=== PATIENT | male | born 1955 | race African-American/Black ===

== ENCOUNTER 2017-02-02 22:42 | Inpatient (IN) | payer BC, OTHER ==
[~2017-02-02] VITALS: Ht 182.9 cm; Wt 86.3 kg
[~2017-02-02 22:42] MED LIST: ANUSOL HC,ANUCO25 MG PR; ASPIR-LOW81 MG PO; BACLOFEN10 MG PO; BACLOFEN20 MG PO; DOCUSATE SODIU100 MG PO; ELIQUIS5 MG PO; ENTEREG12 MG PO; ERYTHROMYCIN250 M1 PO; ESCITALOPRAM OX10 MG PO; FAMOTIDINE40 MG PO; HYDROCODON-ACE1 EAC7 PO; IBUPROFEN600 MG PO; LEXAPRO10 MG PO; LIORESAL10 MG PO; LISINOPRIL10 MG PO; LISINOPRIL20 MG PO; LORAZEPAM0.5 MG PO; NEOMYCIN SULFA500 MG PO; NIFEREX-150,FE150 MG PO; NORCO 5/3251 TABLET PO; PEPCID20 MG PO; PRAVACHOL40 MG PO; PRAVASTATIN SOD20 MG PO; PRAVASTATIN SOD40 MG PO; PREDNISONE20 MG PO; SENNA-DOCUSATE1 EAC1 PO; TRAMADOL HCL50 MG PO; VERAPAMIL HCL180 MG PO; VERAPAMIL HCL360 MG PO; ZESTRIL10 MG PO
[2017-02-02 23:29] LABS: HEMATOCRIT 42.5 % (38.0-50.0); MCH 27.7 PG (29.0-34.0); MCHC 32.2 G/DL (30.0-36.0); MEAN PLAT.VOLUME 9.7 uM^3 (9.0-12.4); PLATELET COUNT 198 K/uL (156-360); RBC DIS.WIDTH-CV 13.9 % (11.8-14.6); RBC DIS.WIDTH-SD 43.5 % (39-53); RED BLOOD COUNT 4.94 M/uL (4.00-5.50); WHITE BLOOD COUNT 4.5 K/uL (4.1-10.2)
[2017-02-02 23:50] LABS: TROP-I INTERPRETATION NEGATIVE; TROPONIN-I < 0.01 ng/mL (0.0-0.30)
[2017-02-03 00:04] LABS: CHLORIDE 107 mEq/L (99-109); POTASSIUM 3.6 mEq/L (3.7-5.4); SODIUM 141 mEq/L (136-147)
[2017-02-03 00:06] LABS: GLUCOSE 108 mg/dL (70-99)
[2017-02-03 00:07] LABS: ANION GAP 14 MEQ/L (2-14)
[2017-02-03 00:08] LABS: TOTAL BILIRUBIN 0.5 mg/dL (0.0-1.0)
[2017-02-03 00:10] LABS: ALKALINE PHOSPHATASE 83 IU/L (3-129); GFR ESTIMATE (CALCULATED) 57 mL/min/
[2017-02-03 00:11] LABS: UREA NITROGEN (BUN) 20 mg/dL (9-23)
[2017-02-03 00:13] LABS: LIPASE 3 U/L (1.0-51.0)
[2017-02-03 02:11] LABS: CHLORIDE 111 mEq/L (99-109); SODIUM 140 mEq/L (136-147)
[2017-02-03 02:13] LABS: GLUCOSE 99 mg/dL (70-99)
[2017-02-03 02:14] LABS: ANION GAP 13 MEQ/L (2-14)
[2017-02-03 02:17] LABS: GFR ESTIMATE (CALCULATED) > 59 mL/min/
[2017-02-03 02:18] LABS: UREA NITROGEN (BUN) 19 mg/dL (9-23)
[2017-02-03 04:57] VITALS: BP 133/64
[2017-02-03 05:59] LABS: BASE EXCESS -0.5 mEq/L (-3 to +3); BICARBONATE 24.2 mEq/L (22-26); CARBOXY HGB 1.4 % (0-5); METHEMOGLOBIN 0.9 % (0-1.5); PCO2 39 mm Hg (35-45); PO2 75 mm Hg (80-100)
[2017-02-03 06:00] LABS: COMMENTS - BLOOD GASES A+C+; DEVICE ROOM AIR; FI02 0.21 %; SITE RR; TOTAL RESP RATE 16 resp/min
[2017-02-03 06:58] LABS: HEMATOCRIT 36.8 % (38.0-50.0); MCHC 32.3 G/DL (30.0-36.0); MCV 86.6 FL (86-99); MEAN PLAT.VOLUME 9.6 uM^3 (9.0-12.4); PLATELET COUNT 174 K/uL (156-360); RBC DIS.WIDTH-CV 14.5 % (11.8-14.6); RBC DIS.WIDTH-SD 45.8 % (39-53); RED BLOOD COUNT 4.25 M/uL (4.00-5.50)
[2017-02-03 07:08] LABS: ALKALINE PHOSPHATASE 53 IU/L (3-129); ANION GAP 10 MEQ/L (2-14); CHLORIDE 108 MEQ/L (99-109); GFR ESTIMATE (CALCULATED) > 59 mL/min/; GLUCOSE 98 mg/dL (70-99); MAGNESIUM 1.3 mg/dl (1.3-2.7); POTASSIUM 3.5 MEQ/L (3.7-5.4); SAMPLE HEMOLYSIS CHECK 0; SAMPLE ICTERIC CHECK 0; SAMPLE LIPEMIA CHECK 0; SODIUM 141 MEQ/L (136-147); TOTAL BILIRUBIN 0.4 MG/DL (0.0-1.0); UREA NITROGEN (BUN) 17 mg/dL (9-23)
[2017-02-03 07:12] LABS: WHITE BLOOD COUNT 10.6 K/uL (4.1-10.2)
[2017-02-03 07:34] VITALS: BP 129/83
[2017-02-03 07:40] LABS: EOSINOPHIL (%) 0 % (0-5); HEMATOLOGY COMMENT 1 SMEAR COMPATIBLE; IMMATURE GRANULOCYTE (%) 0.9 % (0.0-0.7); IMMATURE GRANULOCYTE COUNT 0.1 K/uL; INSTRUMENT ABS NEUTROPHIL CT 8.9 K/uL; LYMPHOCYTE COUNT 0.7 K/uL (1.0-2.8); MONOCYTE (%) 7.7 % (3-12); MONOCYTE COUNT 0.8 K/uL (0-0.8); NEUTROPHIL (%) 84.6 % (45-76); NEUTROPHIL COUNT 8.9 K/uL (1.8-6.4); PLAT.SUFFICIENCY ADEQUATE
[2017-02-03 11:04] VITALS: BP 134/72
[2017-02-03] MEDS ORDERED: BACLOFEN20 MG PO (13:08)
[2017-02-03] MEDS ORDERED: LEXAPRO20 MG PO (13:08)
[2017-02-03] MEDS ORDERED: NORCO 5/3251 TABLET PO (13:09)
[2017-02-03] MEDS ORDERED: PRINIVIL10 MG PO (13:09)
[2017-02-03] MEDS ORDERED: PRAVACHOL40 MG PO (13:10)
[2017-02-03] MEDS ORDERED: VERAPAMIL HCL180 MG PO (13:13)
[2017-02-03] MEDS ORDERED: LOW DOSE ASPIRI81 M1 PO (13:14)
[2017-02-03 15:50] VITALS: BP 120/71
[2017-02-03 22:00] VITALS: BP 122/62
[2017-02-03 22:29] LABS: CHLORIDE 107 mEq/L (99-109); POTASSIUM 3.7 mEq/L (3.7-5.4); SODIUM 139 mEq/L (136-147)
[2017-02-03 22:30] LABS: GLUCOSE 80 mg/dL (70-99)
[2017-02-03 22:32] LABS: ANION GAP 16 MEQ/L (2-14)
[2017-02-03 22:34] LABS: GFR ESTIMATE (CALCULATED) > 59 mL/min/
[2017-02-03 22:35] LABS: UREA NITROGEN (BUN) 17 mg/dL (9-23)
[2017-02-03 23:55] VITALS: BP 166/79
[2017-02-04 01:07] LABS: HEMATOCRIT 36.3 % (38.0-50.0); MCHC 32.5 G/DL (30.0-36.0); RBC DIS.WIDTH-CV 14.8 % (11.8-14.6); RBC DIS.WIDTH-SD 47.1 % (39-53); RED BLOOD COUNT 4.22 M/uL (4.00-5.50); WHITE BLOOD COUNT 2.8 K/uL (4.1-10.2)
[2017-02-04 02:06] LABS: ABS NEUTROPHIL COUNT 1.9; ANISOCYTOSIS 2+; ATYPICAL LYMPHOCYTE 4.3 %; BAND NEUTROPHILS 23.9 % (0-8.0); EOSINOPHIL ABS CT 0; HELMET CELLS 1+; HEMATOLOGY COMMENT 1 SN; INSTRUMENT ABS NEUTROPHIL CT 2.1 K/uL; LYMPHOCYTES 16.3 % (15.0-45.0); MEAN PLAT.VOLUME 9.7 uM^3 (9.0-12.4); METAMYELOCYTES 7.6 %; MICROCYTOSIS 1+; MYELOCYTES 2.2 %; PLAT.SUFFICIENCY ADEQUATE; PLATELET COUNT UNABLE TO REPORT K/uL (156-360); POIKILOCYTOSIS 1+; POLYCHROMASIA 1+; SEG.NEUTROPHILS 44.6 % (46.0-76.0); TOX.VACUOLIZATION 1+; TOXIC GRANULATION 1+
[2017-02-04 04:00] VITALS: BP 123/67
[2017-02-04 07:59] LABS: ALKALINE PHOSPHATASE 61 IU/L (3-129); ANION GAP 6 MEQ/L (2-14); CHLORIDE 110 MEQ/L (99-109); GFR ESTIMATE (CALCULATED) > 59 mL/min/; GLUCOSE 88 mg/dL (70-99); POTASSIUM 3.9 MEQ/L (3.7-5.4); SAMPLE HEMOLYSIS CHECK 0; SAMPLE ICTERIC CHECK 0; SAMPLE LIPEMIA CHECK 0; SODIUM 140 MEQ/L (136-147); TOTAL BILIRUBIN 0.6 MG/DL (0.0-1.0); UREA NITROGEN (BUN) 18 mg/dL (9-23)
[2017-02-04 08:09] LABS: HEMATOCRIT 34.2 % (38.0-50.0); MCH 27.9 PG (29.0-34.0); MCHC 31.9 G/DL (30.0-36.0); MCV 87.7 FL (86-99); MEAN PLAT.VOLUME 9.9 uM^3 (9.0-12.4)
[2017-02-04 08:17] LABS: PLATELET COUNT 115 K/uL (156-360); WHITE BLOOD COUNT 11.4 K/uL (4.1-10.2)
[2017-02-04 08:30] VITALS: BP 155/80
[2017-02-04 12:10] VITALS: BP 175/84
[2017-02-04 13:48] LABS: ADD MIUA? YES; BILIRUBIN NEGATIVE; BLOOD MODERATE; COLOR YELLOW ((YELLOW)); GLUCOSE (STRIP) NEGATIVE; KETONES NEGATIVE; LEUKOCYTES TRACE; NITRITE NEGATIVE; PROTEIN (STRIP) NEGATIVE; SPECIFIC GRAVITY 1.018 (1.000-1.030); UROBILINOGEN 0.2 MG/DL (0.2-1.0)
[2017-02-04 14:20] LABS: BACTERIA NONE SEEN /HPF; EPITHELIAL CELLS RARE /HPF; MUCUS TRACE /LPF; RED BLOOD CELLS TNTC /HPF (0-5); UCUL ADDED? NO
[2017-02-04 15:00] VITALS: BP 131/67
[2017-02-04 17:54] LABS: INTERNAL CONTROL VALID? YES
[2017-02-04 20:00] VITALS: BP 162/85
[2017-02-04 23:55] VITALS: BP 132/76
[2017-02-05 04:00] VITALS: BP 152/76
[2017-02-05 07:08] LABS: MCH 27.4 PG (29.0-34.0); MCHC 31.6 G/DL (30.0-36.0); MCV 86.8 FL (86-99); PLATELET COUNT 123 K/uL (156-360); RBC DIS.WIDTH-CV 14.7 % (11.8-14.6); RBC DIS.WIDTH-SD 47.3 % (39-53); RED BLOOD COUNT 4.38 M/uL (4.00-5.50); WHITE BLOOD COUNT 11.3 K/uL (4.1-10.2)
[2017-02-05 07:31] LABS: ALKALINE PHOSPHATASE 61 IU/L (3-129); DIRECT BILIRUBIN 0.1 mg/dL (0.0-0.3)
[2017-02-05 07:33] LABS: TOTAL BILIRUBIN 0.4 MG/DL (0.0-1.0)
[2017-02-05 08:24] VITALS: BP 150/84
[2017-02-05 10:37] LABS: C DIFF TOXIN NEGATIVE (NEGATIVE); PROBE CHECK PASS; SPECIMEN PROCESSING CONTROL PASS
[2017-02-05 10:55] LABS: ABS NEUTROPHIL COUNT 8.6; ANISOCYTOSIS 1+; EOSINOPHIL ABS CT 0; INSTRUMENT ABS NEUTROPHIL CT 8.3 K/uL; OVALOCYTES 1+; PLAT.SUFFICIENCY DECREASED; POIKILOCYTOSIS 1+
[2017-02-05 12:27] VITALS: BP 164/89
[2017-02-05 17:23] VITALS: BP 184/98
[2017-02-05 19:10] VITALS: BP 138/89
[2017-02-06 00:20] VITALS: BP 171/88
[2017-02-06 04:00] VITALS: BP 160/86
[2017-02-06 06:49] LABS: HEMATOCRIT 38.2 % (38.0-50.0); MCH 27.7 PG (29.0-34.0); MCHC 32.5 G/DL (30.0-36.0); MCV 85.5 FL (86-99); MEAN PLAT.VOLUME 10.2 uM^3 (9.0-12.4); PLATELET COUNT 137 K/uL (156-360); RBC DIS.WIDTH-CV 14.5 % (11.8-14.6); RBC DIS.WIDTH-SD 45.3 % (39-53); RED BLOOD COUNT 4.47 M/uL (4.00-5.50)
[2017-02-06 06:50] LABS: WHITE BLOOD COUNT 6.8 K/uL (4.1-10.2)
[2017-02-06 07:10] LABS: ANION GAP 9 MEQ/L (2-14); CHLORIDE 109 MEQ/L (99-109); GFR ESTIMATE (CALCULATED) > 59 mL/min/; GLUCOSE 82 mg/dL (70-99); POTASSIUM 3.4 MEQ/L (3.7-5.4); SAMPLE HEMOLYSIS CHECK 0; SAMPLE ICTERIC CHECK 0; SAMPLE LIPEMIA CHECK 0; SODIUM 141 MEQ/L (136-147); UREA NITROGEN (BUN) 7 mg/dL (9-23)
[2017-02-06 07:30] VITALS: BP 168/90
[2017-02-06 11:21] VITALS: BP 175/94
[2017-02-06 13:44] LABS: INTER. NORMALIZED RATIO 1.1; PROTHROMBIN TIME 10.9 (9.2-11.2); PTT 27.6 (25-32)
[2017-02-06 17:48] VITALS: BP 109/54
[2017-02-06 23:20] VITALS: BP 138/92
[2017-02-07] VITALS (7 sets, daily range): BP systolic 147–196; BP diastolic 84–97
[2017-02-07 06:37] LABS: EOSINOPHIL (%) 1.8 % (0-5); EOSINOPHIL COUNT 0.1 K/uL (0-0.3); HEMATOCRIT 39.5 % (38.0-50.0); IMMATURE GRANULOCYTE (%) 0.7 % (0.0-0.7); INSTRUMENT ABS NEUTROPHIL CT 3.1 K/uL; LYMPHOCYTE COUNT 1.9 K/uL (1.0-2.8); MCH 27.9 PG (29.0-34.0); MCHC 32.4 G/DL (30.0-36.0); MCV 86.1 FL (86-99); MEAN PLAT.VOLUME 10.6 uM^3 (9.0-12.4); MONOCYTE (%) 10.3 % (3-12); MONOCYTE COUNT 0.6 K/uL (0-0.8); NEUTROPHIL (%) 53.5 % (45-76); NEUTROPHIL COUNT 3.1 K/uL (1.8-6.4); PLATELET COUNT 152 K/uL (156-360); RBC DIS.WIDTH-CV 14.3 % (11.8-14.6); RBC DIS.WIDTH-SD 44.8 % (39-53); RED BLOOD COUNT 4.59 M/uL (4.00-5.50); WHITE BLOOD COUNT 5.7 K/uL (4.1-10.2)
[2017-02-07 07:08] LABS: INTER. NORMALIZED RATIO 1.1
[2017-02-07 07:15] LABS: ANION GAP 8 MEQ/L (2-14); CHLORIDE 107 MEQ/L (99-109); GFR ESTIMATE (CALCULATED) > 59 mL/min/; GLUCOSE 91 mg/dL (70-99); POTASSIUM 3.9 MEQ/L (3.7-5.4); SAMPLE HEMOLYSIS CHECK 0; SAMPLE ICTERIC CHECK 0; SAMPLE LIPEMIA CHECK 0; SODIUM 141 MEQ/L (136-147); UREA NITROGEN (BUN) 7 mg/dL (9-23)
[2017-02-08 06:02] LABS: EOSINOPHIL (%) 1.9 % (0-5); EOSINOPHIL COUNT 0.1 K/uL (0-0.3); HEMATOCRIT 39.5 % (38.0-50.0); IMMATURE GRANULOCYTE (%) 0.9 % (0.0-0.7); IMMATURE GRANULOCYTE COUNT 0.1 K/uL; INSTRUMENT ABS NEUTROPHIL CT 2.6 K/uL; LYMPHOCYTE COUNT 1.9 K/uL (1.0-2.8); MCH 27.2 PG (29.0-34.0); MCHC 32.2 G/DL (30.0-36.0); MCV 84.6 FL (86-99); MEAN PLAT.VOLUME 10.1 uM^3 (9.0-12.4); MONOCYTE COUNT 0.6 K/uL (0-0.8); NEUTROPHIL (%) 49.2 % (45-76); NEUTROPHIL COUNT 2.6 K/uL (1.8-6.4); PLATELET COUNT 174 K/uL (156-360); RBC DIS.WIDTH-CV 13.8 % (11.8-14.6); RBC DIS.WIDTH-SD 42.8 % (39-53); RED BLOOD COUNT 4.67 M/uL (4.00-5.50); WHITE BLOOD COUNT 5.3 K/uL (4.1-10.2)
[2017-02-08 06:38] LABS: ALKALINE PHOSPHATASE 68 IU/L (3-129); ANION GAP 8 MEQ/L (2-14); CHLORIDE 107 MEQ/L (99-109); GFR ESTIMATE (CALCULATED) > 59 mL/min/; GLUCOSE 89 mg/dL (70-99); POTASSIUM 3.7 MEQ/L (3.7-5.4); SAMPLE HEMOLYSIS CHECK 0; SAMPLE ICTERIC CHECK 0; SAMPLE LIPEMIA CHECK 0; SODIUM 141 MEQ/L (136-147); UREA NITROGEN (BUN) 7 mg/dL (9-23)
[2017-02-08 06:42] LABS: TOTAL BILIRUBIN 0.5 MG/DL (0.0-1.0)
[2017-02-08 08:41] VITALS: BP 157/85
[2017-02-08 15:00] VITALS: BP 160/74
[2017-02-08 23:08] VITALS: BP 160/83
[2017-02-09 06:55] LABS: ALKALINE PHOSPHATASE 71 IU/L (3-129); ANION GAP 10 MEQ/L (2-14); CHLORIDE 102 MEQ/L (99-109); GFR ESTIMATE (CALCULATED) > 59 mL/min/; GLUCOSE 92 mg/dL (70-99); POTASSIUM 3.4 MEQ/L (3.7-5.4); SAMPLE HEMOLYSIS CHECK 0; SAMPLE ICTERIC CHECK 0; SAMPLE LIPEMIA CHECK 0; SODIUM 137 MEQ/L (136-147); TOTAL BILIRUBIN 0.6 MG/DL (0.0-1.0); UREA NITROGEN (BUN) 8 mg/dL (9-23)
[2017-02-09 06:56] LABS: EOSINOPHIL (%) 0.8 % (0-5); EOSINOPHIL COUNT 0.1 K/uL (0-0.3); HEMATOCRIT 40.3 % (38.0-50.0); IMMATURE GRANULOCYTE (%) 0.4 % (0.0-0.7); MCH 27.3 PG (29.0-34.0); MCHC 32.5 G/DL (30.0-36.0); MCV 84.1 FL (86-99); NEUTROPHIL (%) 56.6 % (45-76); PLATELET COUNT 192 K/uL (156-360); RBC DIS.WIDTH-CV 14.1 % (11.8-14.6); RBC DIS.WIDTH-SD 43.3 % (39-53); RED BLOOD COUNT 4.79 M/uL (4.00-5.50)
[2017-02-09 07:05] LABS: WHITE BLOOD COUNT 7.1 K/uL (4.1-10.2)
[2017-02-09 07:38] VITALS: BP 153/78
[2017-02-09] MEDS ORDERED: AMLODIPINE BESY10 MG PO (12:38)
[2017-02-09] MEDS ORDERED: LISINOPRIL40 MG PO (12:38)
[2017-02-09] MEDS ORDERED: HYDROCHLOROTHIA25 MG PO (12:38)
[2017-02-09] MEDS ORDERED: LOVENOX80 MG/0.8 SC (12:38)
[2017-02-09] MEDS ORDERED: CIPRO500 MG PO (12:38)
== END 2017-02-09 15:26 | disposition home or self-care (01) | DRG 872 ==
LOC: EME → EDBD 22:42 → 5EAST 02-03 03:17 → EDOF 02-03 03:17 → 2EAST 02-03 03:17 → 4EAST 02-03 03:17 → 2EAST 02-03 04:43 → 4EAST 02-03 22:09 → 5EAST 02-06 15:57
PROVIDERS: Emergency Medicine; Family Medicine; Hospitalist; Internal Medicine Gastroenterology; Physician Assistant; Physician Assistant Medical; Radiology Diagnostic Radiology; Student in an Organized Health Care Education/Training Program
PROC: 0FB13ZX Excision of Right Lobe Liver, Percutaneous Approach, Diagnostic (ICD-10-PCS; principal; 2017-02-07)
DX: A41.51 Sepsis due to Escherichia coli [E. coli] (principal); E87.2 Acidosis; D69.49 Other primary thrombocytopenia; N17.9 Acute kidney failure, unspecified; I82.412 Acute embolism and thrombosis of left femoral vein; C78.7 Secondary malignant neoplasm of liver and intrahepatic bile duct; K92.2 Gastrointestinal hemorrhage, unspecified; C19 Malignant neoplasm of rectosigmoid junction; R65.20 Severe sepsis without septic shock; R31.0 Gross hematuria; I49.8 Other specified cardiac arrhythmias; I10 Essential (primary) hypertension; E78.5 Hyperlipidemia, unspecified; Z93.3 Colostomy status; Z90.49 Acquired absence of other specified parts of digestive tract; Z86.718 Personal history of other venous thrombosis and embolism; Z87.891 Personal history of nicotine dependence; I69.354 Hemiplegia and hemiparesis following cerebral infarction affecting left non-dominant side; R19.7 Diarrhea, unspecified; E86.0 Dehydration; K31.4 Gastric diverticulum; I95.9 Hypotension, unspecified; F32.9 Major depressive disorder, single episode, unspecified; N36.9 Urethral disorder, unspecified; D64.9 Anemia, unspecified; M19.90 Unspecified osteoarthritis, unspecified site; A08.4 Viral intestinal infection, unspecified; I82.512 Chronic embolism and thrombosis of left femoral vein; I49.3 Ventricular premature depolarization; R00.8 Other abnormalities of heart beat; R00.1 Bradycardia, unspecified
CPT/HCPCS: 36600; 74177; 74183; 77012; 80048; 80048 91; 80053; 80076; 81003; 82272; 82378; 82803; 83605; 83690; 83735; 84484; 85025; 85025 91; 85027; 85610; 85730; 87040; 87077; 87186; 87493; 87506; 87801; 88108; 88305; 88341 TC; 88342 TC; 93005; 93306; 93971; 99281; 99285; G0103; J0692; J0696; J0744; J1644; J1650; J1885; J2270; J2405; J3010; J3480; J7030; J7050; J7120; S0028; S0030

== ENCOUNTER 2017-07-10 10:59 | Day surgery (SDC) | payer BC, OTHER ==
[~2017-07-10] VITALS: Ht 182.9 cm; Wt 91.0 kg
[~2017-07-10 10:59] MED LIST changes: +AMLODIPINE BESY10 MG PO; +CIPRO500 MG PO; +DECADRON4 MG PO; +HYDROCHLOROTHIA25 MG PO; +LEXAPRO20 MG PO; +LISINOPRIL40 MG PO; +LOVENOX80 MG/0.8 SC; +LOW DOSE ASPIRI81 M1 PO; +PRINIVIL10 MG PO; +XELODA500 MG PO
[2017-07-10 11:37] VITALS: BP 159/92
[2017-07-10 12:11] LABS: PROTHROMBIN TIME 11.1 SEC (10.2-12.9)
[2017-07-10 12:14] LABS: PTT 28.5 SEC (25-37)
[2017-07-10 13:10] LABS: ADD MIUA? NO; BILIRUBIN NEGATIVE; BLOOD NEGATIVE; COLOR YELLOW ((YELLOW)); GLUCOSE (STRIP) NEGATIVE; KETONES NEGATIVE; LEUKOCYTES NEGATIVE; NITRITE NEGATIVE; PROTEIN (STRIP) NEGATIVE; SPECIFIC GRAVITY 1.017 (1.000-1.030); UROBILINOGEN 0.2 MG/DL (0.2-1.0)
[2017-07-10] MEDS ORDERED: NORCO 5/3251 TABLET PO (15:27)
[2017-07-10 16:38] VITALS: BP 155/94
[2017-07-10 17:25] VITALS: BP 150/92
== END 2017-07-10 17:25 | disposition home or self-care (01) ==
LOC: SDC 10:59 → 2SOUTH 12:29 → EDSTATUS 14:48 → SDC 14:48
PROVIDERS: Surgery
DX: C34.91 Malignant neoplasm of unspecified part of right bronchus or lung (principal); I87.8 Other specified disorders of veins; I10 Essential (primary) hypertension; M54.16 Radiculopathy, lumbar region; Z85.038 Personal history of other malignant neoplasm of large intestine; Z92.21 Personal history of antineoplastic chemotherapy; Z87.891 Personal history of nicotine dependence; Z86.73 Personal history of transient ischemic attack (TIA), and cerebral infarction without residual deficits
CPT/HCPCS: 71010; 81003; 85610; 85730; 93005; C1751; J0690; J2250; J2710; J3010

== ENCOUNTER 2018-02-26 12:18 | Emergency (ER) | payer OTHER, BC ==
[~2018-02-26] VITALS: Ht 182.9 cm; Wt 88.7 kg
[2018-02-26 15:19] LABS: BASOPHIL (%) 0.4 % (0-1); EOSINOPHIL (%) 0.6 % (0-5); HEMATOCRIT 37.6 % (38.0-50.0); HEMOGLOBIN 12.2 G/DL (12.5-16.6); IMMATURE GRANULOCYTE (%) 0.4 % (0.0-0.7); LYMPHOCYTE (%) 34.8 % (15-42); LYMPHOCYTE COUNT 1.7 K/uL (1.0-2.8); MCH 28.2 PG (29.0-34.0); MCHC 32.4 G/DL (30.0-36.0); MCV 86.8 FL (86-99); MONOCYTE (%) 17.7 % (3-12); MONOCYTE COUNT 0.9 K/uL (0-0.8); NEUTROPHIL (%) 46.1 % (45-76); NEUTROPHIL COUNT 2.2 K/uL (1.8-6.4); PLATELET COUNT 189 K/uL (156-360); RBC DIS.WIDTH-CV 17.3 % (11.8-14.6); RBC DIS.WIDTH-SD 55.3 % (39-53); RED BLOOD COUNT 4.33 M/uL (4.00-5.50); WHITE BLOOD COUNT 4.9 K/uL (4.1-10.2)
[2018-02-26 15:29] LABS: ALBUMIN 3.4 g/dL (3.2-4.8); CHLORIDE 101 mEq/L (99-109); POTASSIUM 3.7 mEq/L (3.7-5.4); SODIUM 135 mEq/L (136-147)
[2018-02-26 15:32] LABS: TOTAL PROTEIN 6.1 g/dL (6.4-8.3)
[2018-02-26 15:33] LABS: TOTAL BILIRUBIN 0.6 mg/dL (0.0-1.0)
[2018-02-26 15:35] LABS: ALKALINE PHOSPHATASE 96 IU/L (3-129); CREATININE 0.8 mg/dL (0.6-1.3); GFR ESTIMATE (CALCULATED) > 59 mL/min/ (58.99-99999)
[2018-02-26 15:36] LABS: UREA NITROGEN (BUN) 7 mg/dL (9-23)
[2018-02-26 15:37] LABS: AST (GOT) 19 IU/L (2-34)
[2018-02-26 15:38] LABS: ALT (GPT) 50 IU/L (3-49); LIPASE 2 U/L (1.0-51.0)
[2018-02-26 15:41] LABS: GLUCOSE 240 mg/dL (70-99)
[2018-02-26] MEDS ORDERED: DOXYCYCLINE HY100 MG PO (17:08)
[2018-02-26 18:10] VITALS: BP 155/91
== END 2018-02-26 18:15 | disposition home or self-care (01) ==
LOC: EME 12:18
PROVIDERS: Emergency Medicine
DX: J18.9 Pneumonia, unspecified organism (principal); R16.0 Hepatomegaly, not elsewhere classified; E78.5 Hyperlipidemia, unspecified; I69.354 Hemiplegia and hemiparesis following cerebral infarction affecting left non-dominant side; Z79.01 Long term (current) use of anticoagulants; Z87.891 Personal history of nicotine dependence; Z98.890 Other specified postprocedural states; Z85.46 Personal history of malignant neoplasm of prostate; Z92.21 Personal history of antineoplastic chemotherapy
CPT/HCPCS: 74177; 80053; 81003; 83690; 85025 91; 99281; 99285; J2405; J3010; J7030